=== PATIENT | female | born 1970 | race Caucasian/White ===

== ENCOUNTER 2021-11-17 06:13 | Inpatient (IN) | payer OTHER ==
[2021-11-17] MEDS ORDERED: SODIUM CHLORIDE 1,000 ML IV STA (07:36)
[2021-11-17] MEDS ORDERED: ACETAMINOPHEN 1000 MG/100 ML BAG IVPB ONE (07:36)
[2021-11-17] MEDS ORDERED: ONDANSETRON 4 MG/2 ML VIAL IVPUSH ONE (07:39)
[2021-11-17] MEDS ORDERED: ONDANSETRON 4 MG/2 ML VIAL ONE (07:57)
[2021-11-17] MEDS ORDERED: ACETAMINOPHEN INJECTION 100 ML IVPB ONE (07:57)
[2021-11-17 08:32] LABS: BASO % 0.4 % (0-2.0); EOS % 1.5 % (0-4.5); HEMATOCRIT 41.5 % (32.4-45.2); HEMOGLOBIN 13.7 GM/dL (10.7-15.3); LYMPH % 15.6 % (8-40); MCH 28.7 pg (25.7-33.7); MCHC 32.9 g/dl (32.0-36.0); MEAN CELL VOLUME 87.3 fl (80-96); MEAN PLT VOLUME 7.5 fl (7.5-11.1); MONO % 9.3 % (3.8-10.2); NEUT % 73.2 % (42.8-82.8); PLATELET COUNT 262 10^3/uL (134-434); RBC 4.75 M/mm3 (3.60-5.2); RDW 13.9 % (11.6-15.6); WHITE BLOOD COUNT 11.3 K/mm3 (4.0-10.0)
[2021-11-17 08:48] LABS: CALCIUM 9.4 mg/dL (8.5-10.1)
[2021-11-17 08:49] LABS: ALBUMIN 3.5 g/dl (3.4-5.0); BLOOD UREA NITROGEN 10.3 mg/dL (7-18)
[2021-11-17 08:52] LABS: CREATININE 0.8 mg/dL (0.55-1.3)
[2021-11-17 08:53] LABS: BILIRUBIN,TOTAL 0.4 mg/dL (0.2-1); TOT PROT 6.9 g/dl (6.4-8.2)
[2021-11-17] MEDS ORDERED: KETOROLAC TROMETHAMINE 30 MG/1 ML VIAL IVPUSH ONE (09:05)
[2021-11-17] MEDS ORDERED: KETOROLAC TROMETHAMINE 30 MG/1 ML VIAL ONE (09:08)
[2021-11-17 09:34] LABS: EPI CELLS 36 /uL (0-25.1); HYALINE CASTS 1 /uL (0-3.1); URINE APPEARANCE CLEAR; URINE BACTERIA 923 /uL (0-1359); URINE BILIRUBIN NEGATIVE (NEGATIVE); URINE COLOR YELLOW; URINE GLUCOSE (UA) NEGATIVE (NEGATIVE); URINE KETONE NEGATIVE (NEGATIVE); URINE LEUK ESTERASE 1+ (NEGATIVE); URINE NITRITE NEGATIVE (NEGATIVE); URINE PROTEIN TRACE (NEGATIVE); URINE RBC 11 /uL (0-23.9); URINE UROBILINOGEN 0.2 mg/dL (0.2-1.0); URINE WBC 80 /uL (0-25.8)
[2021-11-17] MEDS ORDERED: CEFTRIAXONE 1,000 MG in DEXTROSE 5%-WATER - 50 ML IVPB ONE (10:59)
[2021-11-17] MEDS ORDERED: CEFTRIAXONE 1 GM/50 ML BAG ONE (11:25)
[2021-11-17] MEDS ORDERED: HYDROmorphone HCL CARPU-JECT 2 MG/1 ML DISP.SYRIN IVPUSH SCH (12:00)
[2021-11-17] MEDS ORDERED: HYDROmorphone HCl 2 MG/ML VIAL ONE (12:01)
[2021-11-17] MEDS ORDERED: HYDROmorphone HCL CARPU-JECT 2 MG/1 ML DISP.SYRIN IVPUSH ONE ×2 (12:07→12:34)
[2021-11-17 12:38] LABS: ACTIVATED PTT 31.4 SECONDS (25.2-36.5); INR 1.01 (0.83-1.09); PROTHROMBIN TIME (PATIENT) 11.6 SEC (9.7-13.0)
[2021-11-17] MEDS ORDERED: SODIUM CHLORIDE 1,000 ML IV SCH (13:15)
[2021-11-17] MEDS ORDERED: KETOROLAC TROMETHAMINE 15 MG/ML VIAL ONE (14:09)
[2021-11-17] MEDS: KETOROLAC TROMETHAMINE 15 MG/ML VIAL IVPUSH PRN ×2 (14:15→21:39)
[2021-11-17 17:23] VITALS: BMI 43.7
[2021-11-17] MEDS ORDERED: NORTRIPTYLINE HCL 50 MG CAPSULE PO SCH (23:24)
[2021-11-17] MEDS ORDERED: VENLAFAXINE HCL 75 MG E.R. CAPSULES PO SCH (23:25)
[2021-11-17] MEDS ORDERED: GABAPENTIN 100 MG CAPSULE PO PRN (23:28)
[2021-11-18] MEDS ORDERED: ACETAMINOPHEN/CAFFEINE/BUTALBITAL 1 TAB PO PRN ×2 (05:34→09:42)
[2021-11-18] MEDS ORDERED: ONDANSETRON 4 MG/2 ML VIAL IVPUSH ONE ×2 (05:39→20:40)
[2021-11-18] MEDS ORDERED: fentaNYL CITRATE 250 MCG/5 ML VIAL ONE (07:45)
[2021-11-18] MEDS ORDERED: MIDAZOLAM HCL 2 MG/2 ML SINGLE DOSE VIAL ONE ×2 (07:45)
[2021-11-18] MEDS ORDERED: PROPOFOL 20 ML ONE ×4 (07:45→12:41)
[2021-11-18] MEDS ORDERED: SEVOFLURANE 250 ML BTL ONE (08:28)
[2021-11-18] MEDS ORDERED: DESFLURANE GAS 240 ML BOTTLE IH ONE (08:28)
[2021-11-18] MEDS ORDERED: KETOROLAC TROMETHAMINE 30 MG/1 ML VIAL ONE (08:28)
[2021-11-18] MEDS ORDERED: DEXAMETHASONE SOD PHOSPHATE 4 MG/1 ML VIAL ONE ×2 (08:28→13:25)
[2021-11-18] MEDS ORDERED: ceFAZolin SODIUM 1 GM VIAL ONE (08:28)
[2021-11-18] MEDS ORDERED: GENTAMICIN SO4 80 MG/2 ML VIAL ONE (08:28)
[2021-11-18] MEDS ORDERED: KETOROLAC TROMETHAMINE 15 MG/ML VIAL IVPUSH PRN (09:42)
[2021-11-18] MEDS ORDERED: NORTRIPTYLINE HCL 25 MG CAPSULE PO SCH (10:00)
[2021-11-18] MEDS ORDERED: NORTRIPTYLINE HCL 50 MG CAPSULE PO SCH (10:00)
[2021-11-18] MEDS ORDERED: CEFTRIAXONE 1 GM in DEXTROSE 5%-WATER - 50 ML IVPB SCH (10:00)
[2021-11-18] MEDS ORDERED: NEBIVOLOL 5 MG TABLET (FP) PO SCH (10:00)
[2021-11-18] MEDS ORDERED: VENLAFAXINE HCL 75 MG E.R. CAPSULES PO SCH (10:00)
[2021-11-18] MEDS ORDERED: oxyCODONE HCL 5 MG TABLET PO PRN (10:01)
[2021-11-18] MEDS ORDERED: HYDROmorphone HCl 2 MG/ML VIAL ONE ×2 (10:02→11:30)
[2021-11-18] MEDS: HYDROmorphone HCl 2 MG/ML VIAL IVPUSH PRN ×4 (10:05→11:45)
[2021-11-18] MEDS ORDERED: LACTATED RINGERS SOLUTION 1,000 ML IV SCH (10:15)
[2021-11-18] MEDS ORDERED: IOHEXOL 300 MG/ML INFUS..BTL IV ONE (13:34)
[2021-11-18] MEDS ORDERED: cefTRIAXone SODIUM 1 GM VIAL ONE (15:03)
[2021-11-18] MEDS ORDERED: DEXTROSE 5%-WATER - 50 ML IVPB ONE (15:03)
[2021-11-18] MEDS: CEFTRIAXONE 1 GM in DEXTROSE 5%-WATER - 50 ML IVPB SCH (15:42)
[2021-11-18] MEDS: HYDROmorphone HCl 2 MG/ML VIAL IVPB PRN ×2 (18:08→22:22)
[2021-11-18] MEDS ORDERED: ACETAMINOPHEN 1000 MG/100 ML BAG IVPB PRN (18:23)
[2021-11-18] MEDS: NEBIVOLOL 5 MG TABLET (FP) PO SCH (18:26)
[2021-11-18] MEDS: SODIUM CHLORIDE 1,000 ML IV SCH ×2 (18:26→18:53)
[2021-11-18] MEDS: VENLAFAXINE HCL 75 MG E.R. CAPSULES PO SCH ×2 (18:27→22:20)
[2021-11-18] MEDS: NORTRIPTYLINE HCL 25 MG CAPSULE PO SCH ×2 (18:27→22:21)
[2021-11-18] MEDS: GABAPENTIN 100 MG CAPSULE PO PRN (22:20)
[2021-11-19] MEDS: HYDROmorphone HCl 2 MG/ML VIAL IVPB PRN ×4 (02:00→19:55)
[2021-11-19 09:12] LABS: BASO % 0.2 % (0-2.0); EOS % 0.1 % (0-4.5); HEMATOCRIT 32.8 % (32.4-45.2); HEMOGLOBIN 10.8 GM/dL (10.7-15.3); LYMPH % 9.1 % (8-40); MCH 28.9 pg (25.7-33.7); MCHC 32.9 g/dl (32.0-36.0); MEAN PLT VOLUME 7.6 fl (7.5-11.1); NEUT % 78.6 % (42.8-82.8); PLATELET COUNT 223 10^3/uL (134-434); RBC 3.72 M/mm3 (3.60-5.2); RDW 13.5 % (11.6-15.6); WHITE BLOOD COUNT 11.5 K/mm3 (4.0-10.0)
[2021-11-19] MEDS ORDERED: cefTRIAXone SODIUM 1 GM VIAL ONE ×2 (09:23→20:55)
[2021-11-19] MEDS ORDERED: DEXTROSE 5%-WATER - 50 ML IVPB ONE ×2 (09:23→20:55)
[2021-11-19 09:55] LABS: CALCIUM 8.2 mg/dL (8.5-10.1)
[2021-11-19 09:56] LABS: MAGNESIUM 1.9 mg/dL (1.8-2.4)
[2021-11-19 10:03] LABS: CREATININE 0.7 mg/dL (0.55-1.3); PHOSPHOROUS 2.7 mg/dL (2.5-4.9)
[2021-11-19] MEDS: SODIUM CHLORIDE 1,000 ML IV SCH (10:09)
[2021-11-19] MEDS: VENLAFAXINE HCL 75 MG E.R. CAPSULES PO SCH ×2 (11:15→21:19)
[2021-11-19] MEDS: NORTRIPTYLINE HCL 25 MG CAPSULE PO SCH ×2 (11:15→21:20)
[2021-11-19] MEDS: NEBIVOLOL 5 MG TABLET (FP) PO SCH ×3 (11:15→21:20)
[2021-11-19] MEDS: CEFTRIAXONE 1 GM in DEXTROSE 5%-WATER - 50 ML IVPB SCH ×2 (11:16→21:20)
[2021-11-19] MEDS ORDERED: SODIUM CHLORIDE 1,000 ML IV SCH (11:38)
[2021-11-19] MEDS: GABAPENTIN 100 MG CAPSULE PO PRN (21:24)
[2021-11-20 03:27] LABS: EPI CELLS >36 /uL (0-25.1); HYALINE CASTS 3 /uL (0-3.1); PH,URINE 5.5 (5.0-8.0); URINE APPEARANCE CLEAR; URINE BACTERIA 47 /uL (0-1359); URINE BILIRUBIN NEGATIVE (NEGATIVE); URINE COLOR YELLOW; URINE GLUCOSE (UA) NEGATIVE (NEGATIVE); URINE KETONE NEGATIVE (NEGATIVE); URINE LEUK ESTERASE 2+ (NEGATIVE); URINE NITRITE NEGATIVE (NEGATIVE); URINE PROTEIN 2+ (NEGATIVE); URINE RBC 1277 /uL (0-23.9); URINE UROBILINOGEN 0.2 mg/dL (0.2-1.0); URINE WBC 148 /uL (0-25.8)
[2021-11-20 09:00] LABS: BASO % 0.7 % (0-2.0); EOS % 3.1 % (0-4.5); HEMATOCRIT 30.6 % (32.4-45.2); HEMOGLOBIN 10.3 GM/dL (10.7-15.3); LYMPH % 23.5 % (8-40); MCH 29.5 pg (25.7-33.7); MCHC 33.5 g/dl (32.0-36.0); MEAN CELL VOLUME 88.1 fl (80-96); MEAN PLT VOLUME 7.5 fl (7.5-11.1); NEUT % 60.7 % (42.8-82.8); PLATELET COUNT 208 10^3/uL (134-434); RBC 3.48 M/mm3 (3.60-5.2); RDW 13.6 % (11.6-15.6); WHITE BLOOD COUNT 8.9 K/mm3 (4.0-10.0)
[2021-11-20 09:51] LABS: BLOOD UREA NITROGEN 7.9 mg/dL (7-18); CALCIUM 8.2 mg/dL (8.5-10.1); CREATININE 0.8 mg/dL (0.55-1.3); MAGNESIUM 1.9 mg/dL (1.8-2.4); PHOSPHOROUS 2.5 mg/dL (2.5-4.9)
[2021-11-20] MEDS: TAMSULOSIN HCL 0.4 MG CAP PO SCH (11:08)
[2021-11-20] MEDS ORDERED: ACETAMINOPHEN 1000 MG/100 ML BAG IVPB PRN (15:12)
[2021-11-20] MEDS ORDERED: oxyCODONE HCL 5 MG TABLET PO PRN (15:13)
[2021-11-20] MEDS ORDERED: cefTRIAXone SODIUM 1 GM VIAL ONE (21:40)
[2021-11-20] MEDS ORDERED: DEXTROSE 5%-WATER - 50 ML IVPB ONE (21:40)
[2021-11-20] MEDS: VENLAFAXINE HCL 75 MG E.R. CAPSULES PO SCH (21:49)
[2021-11-20] MEDS: NORTRIPTYLINE HCL 25 MG CAPSULE PO SCH (21:49)
[2021-11-20] MEDS: NEBIVOLOL 5 MG TABLET (FP) PO SCH (21:49)
[2021-11-20] MEDS: HEPARIN NA (PORCINE) 5,000 UNITS/ML 1ML VIAL SQ SCH (22:25)
[2021-11-20] MEDS: CEFTRIAXONE 1 GM in DEXTROSE 5%-WATER - 50 ML IVPB SCH (22:25)
[2021-11-21] MEDS: HEPARIN NA (PORCINE) 5,000 UNITS/ML 1ML VIAL SQ SCH (06:18)
[2021-11-21 07:05] VITALS: BP 119/70; PULSE 72; TEMP 97.8
[2021-11-21 09:10] LABS: BASO % 0.8 % (0-2.0); EOS % 4.5 % (0-4.5); HEMATOCRIT 32.4 % (32.4-45.2); HEMOGLOBIN 10.6 GM/dL (10.7-15.3); MCH 28.9 pg (25.7-33.7); MCHC 32.8 g/dl (32.0-36.0); MEAN CELL VOLUME 88.2 fl (80-96); MEAN PLT VOLUME 7.7 fl (7.5-11.1); MONO % 13.3 % (3.8-10.2); NEUT % 58.4 % (42.8-82.8); PLATELET COUNT 250 10^3/uL (134-434); RBC 3.67 M/mm3 (3.60-5.2); RDW 13.5 % (11.6-15.6); WHITE BLOOD COUNT 7.7 K/mm3 (4.0-10.0)
[2021-11-21 09:23] LABS: CALCIUM 8.9 mg/dL (8.5-10.1)
[2021-11-21 09:24] LABS: BLOOD UREA NITROGEN 5.5 mg/dL (7-18)
[2021-11-21] MEDS: TAMSULOSIN HCL 0.4 MG CAP PO SCH (09:26)
[2021-11-21 09:27] LABS: CREATININE 0.7 mg/dL (0.55-1.3)
== END 2021-11-21 15:25 | disposition home or self-care (01) | DRG 661 ==
LOC: JER 06:13 → JERBED 10:42 → J8W 14:49
PROVIDERS: ADMIT Internal Medicine; ATTEND Internal Medicine
PROC: 0TP98DZ Removal of Intraluminal Device from Ureter, Via Natural or Artificial Opening Endoscopic (ICD-10-PCS; 2021-11-18)
PROC: BT1DZZZ Fluoroscopy of Right Kidney, Ureter and Bladder (ICD-10-PCS; 2021-11-18)
PROC: 0TC08ZZ Extirpation of Matter from Right Kidney, Via Natural or Artificial Opening Endoscopic (ICD-10-PCS; principal; 2021-11-18 13:30)
PROC: 0T768DZ Dilation of Right Ureter with Intraluminal Device, Via Natural or Artificial Opening Endoscopic (ICD-10-PCS; 2021-11-18 13:30)
DX: N13.6 Pyonephrosis (principal); I10 Essential (primary) hypertension; D72.829 Elevated white blood cell count, unspecified; R04.0 Epistaxis; N18.2 Chronic kidney disease, stage 2 (mild); R31.9 Hematuria, unspecified; N12 Tubulo-interstitial nephritis, not specified as acute or chronic; R33.9 Retention of urine, unspecified; G43.909 Migraine, unspecified, not intractable, without status migrainosus; R32 Unspecified urinary incontinence
CPT/HCPCS: 36415; 71046-TC-FY; 74176-TC; 76000-TC-FY; 76775-TC; 76856-TC; 80048; 80053; 81003; 82360; 83735; 84100; 85025; 85610; 85730; 87040; 87086; 93005; 93010; 94760; 97161-GP; 99285-25; C9803; J0131; J1644; U0003; U0005

== ENCOUNTER 2021-12-21 04:14 | Day surgery (SDC) | payer OTHER ==
[2021-12-17 18:58] VITALS: BMI 41.8
[2021-12-21] MEDS ORDERED: levoFLOXacin 500 MG IVPB 1,500 MG/300 ML BAG IVPB ONE (07:56)
[2021-12-21] MEDS ORDERED: MIDAZOLAM HCL 2 MG/2 ML SINGLE DOSE VIAL ONE (08:01)
[2021-12-21] MEDS ORDERED: PROPOFOL 20 ML ONE ×4 (08:02)
[2021-12-21] MEDS ORDERED: LIDOCAINE HCL/PF 2% SDV 5ML VIAL ONE (08:02)
[2021-12-21 09:08] VITALS: TEMP 97.3
[2021-12-21 10:24] VITALS: BP 117/73; PULSE 70
== END 2021-12-21 10:00 | disposition home or self-care (01) ==
LOC: JASU-SURG 04:14
PROVIDERS: ATTEND Urology
PROC: 0TF3XZZ Fragmentation in Right Kidney Pelvis, External Approach (ICD-10-PCS; principal; 2021-12-21 08:00)
DX: N20.0 Calculus of kidney (principal)

== ENCOUNTER 2022-01-22 14:35 | Day surgery (SDC) | payer OTHER ==
[2022-01-22 14:43] VITALS: BMI 41.8
[2022-01-22] MEDS ORDERED: ONDANSETRON 4 MG/2 ML VIAL IVPUSH ONE (15:02)
[2022-01-22] MEDS ORDERED: KETOROLAC TROMETHAMINE 15 MG/ML VIAL IVPUSH ONE (15:03)
[2022-01-22] MEDS ORDERED: KETOROLAC TROMETHAMINE 15 MG/ML VIAL ONE (15:21)
[2022-01-22] MEDS ORDERED: ONDANSETRON 4 MG/2 ML VIAL ONE (15:21)
[2022-01-22 15:47] LABS: BASO % 0.9 % (0-2.0); EOS % 1.1 % (0-4.5); HEMATOCRIT 38.9 % (32.4-45.2); HEMOGLOBIN 12.6 GM/dL (10.7-15.3); LYMPH % 10.3 % (8-40); MCH 27.6 pg (25.7-33.7); MCHC 32.3 g/dl (32.0-36.0); MEAN CELL VOLUME 85.7 fl (80-96); MEAN PLT VOLUME 7.6 fl (7.5-11.1); MONO % 9.1 % (3.8-10.2); NEUT % 78.6 % (42.8-82.8); PLATELET COUNT 281 10^3/uL (134-434); RBC 4.54 M/mm3 (3.60-5.2); RDW 13.7 % (11.6-15.6); WHITE BLOOD COUNT 14.2 K/mm3 (4.0-10.0)
[2022-01-22 15:49] LABS: EPI CELLS 32 /uL (0-25.1); HYALINE CASTS 0 /uL (0-3.1); URINE APPEARANCE CLEAR; URINE BACTERIA 1443 /uL (0-1359); URINE BILIRUBIN NEGATIVE (NEGATIVE); URINE COLOR YELLOW; URINE GLUCOSE (UA) NEGATIVE (NEGATIVE); URINE KETONE NEGATIVE (NEGATIVE); URINE LEUK ESTERASE 2+ (NEGATIVE); URINE NITRITE NEGATIVE (NEGATIVE); URINE PROTEIN NEGATIVE (NEGATIVE); URINE RBC 10 /uL (0-23.9); URINE UROBILINOGEN 0.2 mg/dL (0.2-1.0); URINE WBC 86 /uL (0-25.8)
[2022-01-22 15:57] LABS: INR 1.09 (0.83-1.09); PROTHROMBIN TIME (PATIENT) 12.5 SEC (9.7-13.0)
[2022-01-22 16:00] LABS: ACTIVATED PTT 30.3 SECONDS (25.2-36.5)
[2022-01-22 16:17] LABS: ALBUMIN 3.3 g/dl (3.4-5.0); BLOOD UREA NITROGEN 12.6 mg/dL (7-18); CALCIUM 9.1 mg/dL (8.5-10.1)
[2022-01-22 16:22] LABS: BILIRUBIN,TOTAL 0.4 mg/dL (0.2-1); TOT PROT 6.8 g/dl (6.4-8.2)
[2022-01-22] MEDS ORDERED: morphine CARPU-JECT 4 MG/1 ML DISP.SYRIN IVPUSH ONE (18:10)
[2022-01-22] MEDS ORDERED: PROPOFOL 20 ML ONE (18:20)
[2022-01-22] MEDS ORDERED: LIDOCAINE HCL/PF 2% SDV 5ML VIAL ONE (18:22)
[2022-01-22] MEDS ORDERED: BUPIVACAINE HCL/PF 0.5% (5MG/ML) 10 ML VIAL ONE (18:24)
[2022-01-22] MEDS ORDERED: MIDAZOLAM HCL 2 MG/2 ML SINGLE DOSE VIAL ONE ×3 (18:41→20:31)
[2022-01-22] MEDS ORDERED: GENTAMICIN SO4 80 MG/2 ML VIAL IVPB ONE (18:45)
[2022-01-22] MEDS ORDERED: ceFAZolin SODIUM 1 GM VIAL IVPB ONE (18:45)
[2022-01-22] MEDS ORDERED: ONDANSETRON 4 MG/2 ML VIAL IVPUSH PRN (21:22)
[2022-01-22] MEDS ORDERED: oxyCODONE HCL 5 MG TABLET PO PRN (21:22)
[2022-01-22] MEDS ORDERED: LACTATED RINGERS SOLUTION 1,000 ML IV SCH (21:30)
[2022-01-22 21:41] VITALS: TEMP 97.3
[2022-01-22 22:50] VITALS: BP 117/70; PULSE 80
== END 2022-01-22 23:25 | disposition home or self-care (01) ==
LOC: JOR 14:35 → JASUSAT 16:41 → J4S 22:18 → JASUSAT 23:25
PROVIDERS: ATTEND Urology
PROC: 0TC38ZZ Extirpation of Matter from Right Kidney Pelvis, Via Natural or Artificial Opening Endoscopic (ICD-10-PCS; principal; 2022-01-22 18:00)
PROC: 0T768DZ Dilation of Right Ureter with Intraluminal Device, Via Natural or Artificial Opening Endoscopic (ICD-10-PCS; 2022-01-22 18:00)
DX: N13.2 Hydronephrosis with renal and ureteral calculous obstruction (principal)
CPT/HCPCS: 36415; 74176-TC; 76000-TC-FY; 80053; 81003; 82360; 85025; 85610; 85730; 86850; 86900; 86901; 87086; 88300-TC; 94760; 99285-25; C9803-CS; U0003; U0005

== ENCOUNTER 2022-03-29 04:15 | Day surgery (SDC) | payer OTHER ==
[2022-03-26 14:31] VITALS: BMI 41.5
[2022-03-29] MEDS ORDERED: MIDAZOLAM HCL 2 MG/2 ML SINGLE DOSE VIAL ONE (08:08)
[2022-03-29] MEDS ORDERED: PROPOFOL 20 ML ONE (08:08)
[2022-03-29] MEDS ORDERED: DEXAMETHASONE SOD PHOSPHATE 4 MG/1 ML VIAL ONE (08:34)
[2022-03-29 09:02] VITALS: TEMP 98
[2022-03-29 09:48] VITALS: BP 111/71; PULSE 84
== END 2022-03-29 10:00 | disposition home or self-care (01) ==
LOC: JASU-SURG 04:15
PROVIDERS: ATTEND Urology
PROC: 0TF3XZZ Fragmentation in Right Kidney Pelvis, External Approach (ICD-10-PCS; principal; 2022-03-29 08:30)
DX: N20.0 Calculus of kidney (principal)

== ENCOUNTER 2025-06-13 06:15 | Day surgery (SDC) | payer BC ==
[2025-06-13] MEDS ORDERED: LIDOCAINE HCL/PF 2% SDV 5ML VIAL ONE (07:15)
[2025-06-13] MEDS ORDERED: LIDOCAINE HCL/PF 1% SDV 5ML VIAL ONE (07:15)
[2025-06-13] MEDS ORDERED: BUPIVACAINE HCL/PF 0.75% 10 ML VIAL ONE (07:15)
[2025-06-13] MEDS ORDERED: BUPIVACAINE HCL/PF 0.5% (5MG/ML) 10 ML VIAL ONE (07:15)
[2025-06-13] MEDS ORDERED: DEXAMETHASONE SOD PHOSPHATE 10 MG/1 ML VIAL ONE (07:15)
[2025-06-13] MEDS ORDERED: TRIAMCINOLONE ACET 40MG/1ML VIAL ONE (07:15)
[2025-06-13 09:34] VITALS: RESP 20
[2025-06-13] MEDS: LIDOCAINE HCL 1% PRESERVATIVE FREE - 30ML VIAL IJ ONE (10:06)
[2025-06-13] MEDS: IOHEXOL 180 MG/1 ML ML IJ ONE (10:07)
[2025-06-13] MEDS: TRIAMCINOLONE ACET 40MG/1ML VIAL IM ONE (10:09)
[2025-06-13] MEDS: BUPIVACAINE HCL/PF 0.5% (5MG/ML) 10 ML VIAL IJ ONE (10:09)
[2025-06-13 11:14] VITALS: BP 110/80; PULSE 80; TEMP 98
== END 2025-06-13 11:05 | disposition home or self-care (01) ==
LOC: JASU-SURG 06:15
PROVIDERS: ATTEND Pain Medicine Pain Medicine
PROC: 3E0U3GC Introduction of Other Therapeutic Substance into Joints, Percutaneous Approach (ICD-10-PCS; principal; 2025-06-13 10:30)
DX: M53.3 Sacrococcygeal disorders, not elsewhere classified (principal)
CPT/HCPCS: J1100